=== PATIENT | male | born 1945 | race Caucasian/White ===

== ENCOUNTER → 2017-05-12 | Outpatient (CLI) | payer MEDICARE, OTHER ==
[~2017-05-12] MED LIST: AZATHIOPRINE50 MG PO; DALIRESP500 MCG PO; DULERA 100 MCG/13 GM; DULERA INHALER; FLOMAX0.4 MG PO; JANUVIA100 MG PO; LEVEMIR100 UNIT/1; PROAIR HFA INH8.5 GM; SPIRIVA18 MCG INH; TYLENOL WITH C1 EACH PO
--- NOTE | 2017-05-12 13:15 | Diagnostic Imaging Report ---
PROCEDURE: X-RAY CHEST, TWO VIEWS COMPARISON: Chest x-ray 02/22/17 INDICATIONS: UPPER RESPIRATORY INFECTION FINDINGS: LUNGS: Diffusely hyperinflated with mild reticulation at the periphery, particularly the right lung, suggestive of fibrosis. No progression compared to previous exam. There is mild diffuse bronchial wall thickening. No mass or infiltrate. PLEURA: Posterior blunting of the costophrenic angles is similar. No evidence of pneumothorax. HEART \T\ MEDIASTINUM: The heart is within normal size-limits. BONES \T\ SOFT TISSUES: Diffusely demineralized with degenerative changes of the spine. No focal osseous lesions. CONCLUSION: Stable pulmonary hyperinflation suggestive of COPD. No acute cardiopulmonary process. Dictated by: Koby Jimenez M.D. on 05/12/2017 at 13:23 Electronically approved by: Koby Jimenez M.D. on 05/12/2017 at 13:23
== END ==
LOC: RAD 12:47
PROVIDERS: ATTEND Family Medicine
DX: R07.89 Other chest pain (principal); J40 Bronchitis, not specified as acute or chronic
CPT/HCPCS: 71020

== ENCOUNTER → 2017-08-02 | Day surgery (SDC) | payer MEDICARE, OTHER ==
[~2017-08-02] VITALS: Ht 172.7 cm; Wt 74.8 kg
[~2017-08-02] MED LIST changes: +ASPIRIN 81 MG CHEW TAB PO ONE; +FENTANYL CITRATE/PF 100MCG/2 ML INJ ONE; +FUROSEMIDE INJ 10 MG/ML 4 ML VIAL ONE; +HEPARIN SOD/SOD CHLORIDE 2,000 ML ONE; +IOPAMIDOL 370 MG/ML 200 ML INFUS..BTL INJ ONE; +LIDOCAINE HCL 2% LOCAL 20 ML VIAL ONE; +MIDAZOLAM HCL 2 MG/2 ML VIAL ONE; +SODIUM CHLORIDE 0.9% 1000ML 1,000 ML ONE
--- OUTSIDE RECORDS SUMMARY | 2017-08-02 10:41 | XMS REPORT ---
Author Author [facility] Address Unknown Phone Unavailable Care Team Providers Care Street Cleaner Name Role Phone RAFY CAMPBELL Unavailable Unavailable Problems This patient has no known problems. Allergies, Adverse Reactions, Alerts This patient has no known allergies or adverse reactions. Medications This patient has no known medications. Results Test Description Test Time Test Comments Text Results Atomic Results Result Comments CHEST 2 VIEWS [place] [address] Patient Name: MESHA PAGE MR #: [id number] : 1945 Age/Sex: 72/M Req # : [id number] Adm Physician: Ordered by: RAFY CAMPBELL MD Report #: [id number] Location: [facility] Room/Bed: Procedure: [id number] 0050 DX/CHEST 2 VIEWS Exam Date: 05/12/17 Exam Time : 1254 REPORT STATUS: Signed PROCEDURE: X-RAY CHEST, TWO VIEWS COMPARISON: Chest x-ray 02/22/17 INDICATIONS: UPPER RESPIRATORY INFECTION FINDINGS: LUNGS: Diffusely hyperinflated with mild reticulation at the periphery, particularly the right lung, suggestive of fibrosis. No progression compared to previous exam. There is mild diffuse bronchial wall thickening. No mass or infiltrate. PLEURA: Posterior blunting of the costophrenic angles is similar. No evidence of pneumothorax. HEART T MEDIASTINUM: The heart is within normal size-limits. BONES T SOFT TISSUES: Diffusely demineralized with degenerative changes of the spine. No focal osseous lesions. CONCLUSION: Stable pulmonary hyperinflation suggestive of COPD. No acute cardiopulmonary process. Dictated by: Tavon Jimenez M.D. on 05/12/2017 at 13:23 Electronically approved by: Tavon Jimenez M.D. on 05/12/2017 at 13:23 Dictated By: TAVON JIMENEZ MD 1323 Transcribed By: NGHIA on 05/12/17 1323 COPY TO: RAFY CAMPBELL MD CHEST 2 VIEWS [place] [address] Patient Name: MESHA PAGE MR #: [id number] : 1945 Age/Sex: 72/M Req # : [id number] Adm Physician: Ordered by: RAFY CAMPBELL MD Report #: [id number] Location: [facility] Room/Bed: Procedure: [id number] 0023 DX/CHEST 2 VIEWS Exam Date: 02/22/17 Exam Time : 0930 REPORT STATUS: Signed PROCEDURE: Frontal and lateral views of the chest. COMPARISON: Chest 2 views 02/25/2014. INDICATIONS: CONGESTION FINDINGS: Lines/tubes: None. Lungs: The lungs are hyperexpanded bilaterally. No focal consolidation. No parenchymal mass. Bibasilar atelectasis. Pleura: There is no pleural effusion or pneumothorax. Heart and mediastinum: The heart and the mediastinum are normal. Atherosclerotic calcifications. Bones: No acute bony abnormality. Degenerative changes of the thoracic spine. IMPRESSION: No acute radiographic abnormality. Emphysematous changes. Dictated by: Rogerio Cordova M.D. on 02/22/2017 at 10:23 Electronically approved by : Rogerio Cordova M.D. on 02/22/2017 at 10:23 Dictated By: ROGERIO CORDOVA MD 1023 Transcribed By: NGHIA on 02/22/17 1023 COPY TO: RAFY CAMPBELL MD
--- NOTE | 2017-08-02 11:24 | Diagnostic Imaging Report ---
PROCEDURE: A single AP view of the chest. COMPARISON: Chest 2 views 05/12/2017. INDICATIONS: DYSPNEA FINDINGS: Lines/tubes: None. Lungs: The lungs are well inflated and clear. There is no evidence of pneumonia or pulmonary edema. Pleura: There is no pleural effusion or pneumothorax. Heart and mediastinum: The heart and the mediastinum are unremarkable. Bones: No acute bony abnormality. Changes of the thoracic spine. IMPRESSION: No acute radiographic abnormality. Dictated by: Jamir Lujan M.D. on 08/02/2017 at 11:25 Electronically approved by: Jamir Lujan M.D. on 08/02/2017 at 11:25
[2017-08-02 12:31] LABS: BASOPHILS # (AUTO) 0.1 (0.0-0.1); BASOPHILS % 0.5 % (0.0-1.0); EOSINOPHILS # (AUTO) 0.2 (0.0-0.4); HEMATOCRIT 42.8 % (38.2-49.6); HEMOGLOBIN 14.3 g/dL (14.0-18.0); LYMPHOCYTES # (AUTO) 1.5 (1.0-3.2); LYMPHOCYTES % 14.4 % (18.0-39.1); MEAN CORPUSCULAR HEMOGLOBIN 29.9 pg (28-32); MEAN CORPUSCULAR HGB CONC 33.4 g/dL (31-35); MEAN CORPUSCULAR VOLUME 89.4 fL (81-99); MONOCYTES # (AUTO) 0.9 (0.2-0.8); MONOCYTES % 8.6 % (4.4-11.3); NEUTROPHILS # (AUTO) 7.4 (2.1-6.9); NEUTROPHILS % 73.3 % (38.7-80.0); PLATELET COUNT 71 x10e3/uL (140-360); RED BLOOD COUNT 4.79 x10e6/uL (4.3-5.7); RED CELL DISTRIBUTION WIDTH 15.1 % (11.7-14.4)
[2017-08-02 12:37] LABS: INR 1.03; PARTIAL THROMBOPLASTIN TIME 26.9 seconds (23.8-35.5); PROTHROMBIN TIME 12.7 seconds (11.9-14.5)
[2017-08-02 12:47] LABS: ALANINE AMINOTRANSFERASE 21 IU/L (0-55); ALBUMIN 3.4 g/dL (3.5-5.0); ALBUMIN/GLOBULIN RATIO 1.1 (0.8-2.0); ALKALINE PHOSPHATASE 58 IU/L (40-150); ANION GAP 12.9 mmol/L (8-16); BLOOD UREA NITROGEN 20 mg/dL (7-26); BUN/CREATININE RATIO 22 (6-25); CALCIUM 9.2 mg/dL (8.4-10.2); CARBON DIOXIDE 27 mmol/L (22-29); CHLORIDE 103 mmol/L (98-107); CREATINE KINASE 35 IU/L (30-200); CREATININE, SERUM 0.93 mg/dL (0.72-1.25); EST GLOMERULAR FILTRATION RATE > 60 ML/MIN (60-); GLUCOSE 148 mg/dL (74-118); MAGNESIUM 1.8 MG/DL (1.3-2.1); POTASSIUM 3.9 mmol/L (3.5-5.1); SODIUM 139 mmol/L (136-145)
[2017-08-02 12:55] LABS: B-TYPE NATRIURETIC PEPTIDE2 246.3 pg/mL (0-100)
[2017-08-02 13:07] LABS: THYROID STIMULATING HORMONE 2.826 uIU/mL (0.350-4.940)
--- NOTE | 2017-08-02 14:23 | History and Physical ---
CHIEF COMPLAINT: The patient is a 72-year-old with shortness of breath. HISTORY OF PRESENT ILLNESS: The patient is a 72-year-old who has had marked shortness of breath over the last several weeks which has been getting progressively worse. The patient has had no chest pain, no nausea, no vomiting, no coughing, no fevers, no abdominal pain. PAST MEDICAL HISTORY: Significant for 1. Previous right femoral to popliteal bypass and peripheral stent placement. 2. History of colon cancer and chemotherapy. 3. Previous colon surgery. 4. Diabetes mellitus. MEDICATIONS AT HOME INCLUDE: Flomax, Advair, Spiriva, atorvastatin, Januvia, insulin, prednisone. SOCIAL HISTORY: The patient has been a heavy smoker. The patient does not drink. FAMILY HISTORY: The patient's father had heart disease. PHYSICAL EXAMINATION GENERAL: The patient is a well-developed, well-nourished male in no obvious distress. VITAL SIGNS: Included a temperature of 98.8, blood pressure of 125/60, pulse 86. HEAD, EARS, EYES, NOSE AND THROAT: The patient's cranium is normocephalic and atraumatic. Extraocular muscles are intact. Sclerae are anicteric. Pupils are equally round and reactive to light. There is no pallor or cyanosis of the oral mucosa. There is no erythema or edema of the throat. NECK: Supple. No jugular venous distention. CHEST: Demonstrated rhonchi and decreased breath sounds bilaterally. CARDIAC: Demonstrated normal S1 and S2 with a short 2/6 systolic murmur. ABDOMINAL: Demonstrated good bowel sounds. No tenderness and no masses. EXTREMITIES: There is no clubbing, no cyanosis and no edema. NEUROLOGICAL: The patient is alert and oriented x3. Cranial nerves 2-12 are intact. Motor strength is +5/+5 in all limbs. The patient's EKG demonstrated normal sinus rhythm with nonspecific ST-T wave changes. IMPRESSION: The patient is a 72-year-old with worsening shortness of breath. The patient has known peripheral vascular disease. The patient will require a cardiac catheterization to exclude coronary artery disease as a cause of the patient's worsening dyspnea. Job#: [id number] EV
--- NOTE | 2017-08-02 14:51 | Cardiology Report ---
DATE OF STUDY: NO DICTATION, LENGTH 0:1 Job#: [id number] RI
--- NOTE | 2017-08-02 15:07 | Operative Report ---
DATE OF PROCEDURE: August 02, 2017 PROCEDURE: Left heart catheterization. INDICATION: Congestive heart failure. COMPLICATIONS: None. TECHNIQUE: The right groin was draped and prepped in the usual manner. The area was anesthetized with lidocaine. Standard Seldinger technique was used to place a 6-[place] sheath into the right femoral artery without difficulty. A JL4 catheter was used to selectively engage the left coronary artery. A 3DRC catheter was used to selectively engage the right coronary artery. A pigtail catheter was used to perform a left ventriculogram. There were no complications. Results are as follows: 1. There is a long left main trunk with 70% diffuse stenosis. 2. There is a large left anterior descending artery that gives rise to a medium-size diagonal branch. There was a discrete 90% stenosis in the mid portion of the left anterior descending artery and cylindrical narrowing through the entire vessel. 3. There was a large dominant AV circumflex artery which gave rise to a large bifurcating obtuse marginal branch. There was 90% stenosis in the obtuse marginal branch and about 70% stenosis at the origin of the AV circumflex artery. 4. There was a small nondominant right coronary artery with about 80% stenosis in the mid vessel. 5. There was normal left ventricular size with hypokinesis of the anterior wall and apex and overall severe left ventricular dysfunction with an ejection fraction of 25%. CONCLUSION: The patient has severe 3-vessel disease with left main trunk stenosis. The patient will need to be referred for coronary artery bypass graft. Job#: [id number] cc:RAFY CAMPBELL MD
== END | disposition short-term general hospital (02) ==
LOC: ER 10:39 → CATH LAB 13:11
PROVIDERS: ATTEND Internal Medicine Cardiovascular Disease
DX: I25.10 Atherosclerotic heart disease of native coronary artery without angina pectoris (principal); E11.9 Type 2 diabetes mellitus without complications; Z82.49 Family history of ischemic heart disease and other diseases of the circulatory system
CPT/HCPCS: 36415; 71045; 77002; 80053; 82550; 82553; 83605; 83735; 83880; 84443; 84484; 85025; 85610; 85730; 87400; 93005; 93306; 93458; 99285; C1769; J1940; J2001; J2250; J7030; Q9967; 36140; 93452

== ENCOUNTER → 2020-12-24 | Outpatient (CLI) | payer MEDICARE, OTHER ==
[~2020-12-24] MED LIST changes: -ASPIRIN 81 MG CHEW TAB PO ONE; -FENTANYL CITRATE/PF 100MCG/2 ML INJ ONE; -FUROSEMIDE INJ 10 MG/ML 4 ML VIAL ONE; -HEPARIN SOD/SOD CHLORIDE 2,000 ML ONE; -IOPAMIDOL 370 MG/ML 200 ML INFUS..BTL INJ ONE; -LIDOCAINE HCL 2% LOCAL 20 ML VIAL ONE; -MIDAZOLAM HCL 2 MG/2 ML VIAL ONE; -SODIUM CHLORIDE 0.9% 1000ML 1,000 ML ONE
== END ==
LOC: CT 15:33
PROVIDERS: ATTEND Family Medicine
DX: Z12.2 Encounter for screening for malignant neoplasm of respiratory organs (principal)
CPT/HCPCS: 71250